=== PATIENT | female | born 1945 | race Caucasian/White ===

== ENCOUNTER 2017-03-11 08:15 | Emergency (ER) | payer OTHER ==
[2017-03-11 08:25] VITALS: BP 142/69; BMI 30.7
[2017-03-11] MEDS ORDERED: DUONEB 0.5 MG/3 MG NEB ONE (08:38)
[2017-03-11] MEDS ORDERED: DUONEB 0.5 MG/3 MG ONE ×2 (08:39→08:54)
[2017-03-11] MEDS ORDERED: NS 1000 ML 1,000 ML IV STA (08:49)
[2017-03-11] MEDS ORDERED: NS 1000 ML 1,000 ML ONE (08:52)
--- NOTE | 2017-03-11 08:55 | DR.GENAD ---
HPI - PCP Primary Care Physician: margarita - Complaint/Symptoms Chief Complaint Doctors Comments: Patient states that she has had headache, sore throat, chills and bodyaches for three days. She also admits to vomiting and diarrhea and low grade and low grade fever. Chief Complaint:: patient stated that since mondy she has been having abd pain with cramping and fever. 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 - Family History History of Family Medical Conditions: No - Social History Does patient currently use any type of tobacco product: No Have you used tobacco products in the last 12 months: No Type of Tobacco Use: None Does any household member use tobacco: No Alcohol Use: None Do you use any recreational Drugs:: No Lives With: Family Lives Where: Home - infectious screening In the last 2 months have you had wt loss of >10#?: NO Have you had fever, night sweats or hemotysis?: No Have you traveled outside the country in the last 6 months?: No Isolation: Standard ROS - Review of Systems Constitutional: Chills, Fever, Fatigue Eyes: No Symptoms Reported ENTM: No Symptoms Reported Respiratoy: No Symptoms Reported Cardiovascular: No Symptoms Reported Gastrointestinal/Abdominal: No Symptoms Reported Genitourinary: No Symptoms Reported Neurological: No Symptoms Reported Musculoskeletal: No Symptoms Reported Integumentary: No Symptoms Reported Hematologic/Lymphatic: No Symptoms Reported Endocrine: No Symptoms Reported Psychiatric: No Symptoms Reported All Other Systems: Reviewed and Negative PE - Vital Signs Vitals: Temperature 97.8 F Pulse Rate 84 Respiratory Rate 16 Blood Pressure 142/69 O2 Sat by Pulse Oximetry 93 - General Limitations: No Limitations General Appearance: Alert, In No Apparent Distress - Head Head Exam: Normal Inspection, Atraumatic - Eyes Eye exam: Normal Appearance, PERRL, EOMI - ENT ENT Exam: Normal Exam External Ear Exam: Normal External Inspection TM/Canal Exam: Bilateral Normal Nose Exam: Normal Nose Exam Mouth Exam: Normal Inspection Throat Exam: Normal Inspection - Neck Neck Exam: Normal Inspection - Chest Chest Inspection: Normal Inspection - Respiratory Respiratory Exam: Normal Lung Sounds Bilat Respiratory Exam: Bilateral Clear to Auscultation - Cardiovascular Cardiovascular Exam: Regular Rate, Normal Rhythm - Abdominal Exam Abdominal Exam: Normal Inspection Abdominal Tenderness: negative: RUQ, RLQ, LUQ, LLQ, Epigastrium, Suprapubic, Diffuse, Mild, Moderate, Severe, Other - Extremities Extremities Exam: Normal Inspection, Full ROM - Back Back Exam: Normal Inspection - Neurologic Neurological Exam: Alert, Oriented X3, CN II-XII Intact - Psychiatric Psychiatric Exam: Normal Affect - Skin Skin Exam: Warm, Dry, Intact Course - Reevaluation 1st: Improved ROR - Labs Reviewed Laboratory Results Reviewed?: Yes (low potassium) Result Diagrams: 03/11/17 09:08 03/11/17 09:08 Laboratory: WBC 10.4 X10^3/uL (3.6-10.0) H 03/11/17 09:08 RBC 4.80 X10^6/uL (3.5-5.4) 03/11/17 09:08 Hgb 13.5 g/dL (12.0-16.0) 03/11/17 09:08 Hct 39.8 % (36.0-47.0) 03/11/17 09:08 MCV 82.9 fL (80.0-100.0) 03/11/17 09:08 MCH 28.1 pg (27.0-34.0) 03/11/17 09:08 MCHC 33.9 g/dL (33.0-35.0) 03/11/17 09:08 RDW 14.2 % (11.6-16.5) 03/11/17 09:08 Plt Count 102 X10^3/uL (150.0-450.0) L 03/11/17 09:08 MPV 8.2 fL (7.4-11.0) 03/11/17 09:08 Neut % 86.4 % (42.0-75.0) H 03/11/17 09:08 Lymph % 6.7 % (21.0-51.0) L 03/11/17 09:08 [place] % 5.6 % (0.0-13.0) 03/11/17 09:08 Eos % 0.7 % (0.9-2.9) L 03/11/17 09:08 Baso % 0.6 % (0.2-1.0) 03/11/17 09:08 Neut # 9.0 x10^3/uL (2.2-4.8) H 03/11/17 09:08 Lymph # 0.7 X10^3/uL (1.3-2.9) L 03/11/17 09:08 [place] # 0.6 x10^3/uL (0.3-0.8) 03/11/17 09:08 Eos # 0.1 x10^3/uL (0.0-0.2) 03/11/17 09:08 Baso # 0.1 X10^3/uL (0.0-0.1) 03/11/17 09:08 Absolute Nucleated RBC 0.0 /100WBC 03/11/17 09:08 Sodium 143 mmol/L (136-145) 03/11/17 09:08 Corrected Sodium 145 mmol/L (136-145) 03/11/17 09:08 Potassium 2.6 mmol/L (3.5-5.1) L* 03/11/17 09:08 Chloride 106 mmol/L (98-107) 03/11/17 09:08 Carbon Dioxide 24.7 mmol/L (21-32) 03/11/17 09:08 BUN 17 mg/dL (7-18) 03/11/17 09:08 Creatinine 1.86 mg/dL (0.55-1.02) H 03/11/17 09:08 Est GFR (MDRD) Af Amer 34 (>60) L 03/11/17 09:08 Est GFR (MDRD) Non-Af 28 (>60) L 03/11/17 09:08 Glucose 181 mg/dL (65-99) H 03/11/17 09:08 Calcium 8.9 mg/dL (8.5-10.1) 03/11/17 09:08 Corrected Calcium 9.9 mg/dL (8.5-10.1) 03/11/17 09:08 Total Bilirubin 1.80 mg/dL (0.2-1.0) H 03/11/17 09:08 AST 50 Units/L (15-37) H 03/11/17 09:08 ALT 25 Units/L (12-78) 03/11/17 09:08 Alkaline Phosphatase 115 Units/L (46-116) 03/11/17 09:08 Total Protein 6.8 g/dL (6.4-8.2) 03/11/17 09:08 Albumin 2.8 g/dL (3.4-5.0) L 03/11/17 09:08 Globulin 4.0 g/dL (2.5-4.5) 03/11/17 09:08 Albumin/Globulin Ratio 0.7 Ratio (1.1-2.1) L 03/11/17 09:08 H. pylori IgG Antibody Positive (NEGATIVE) A 03/11/17 09:08 Streptococcus Screen Negative (NEGATIVE) 03/11/17 08:58 - XRAY XRAY Interpreted by: Radiologist (Chest: No cardiopulmonary disease) - Diagnosis Discharge Problem: Acute gastroenteritis - Discharge Plan Condition: Stable - Follow ups/Referrals Follow ups/Referrals: Hood Castillo [Primary Care Provider] - 3 days - Instructions
[2017-03-11 09:22] LABS: BASOPHILS # (AUTO) 0.1 X10^3/uL (0.0-0.1); BASOPHILS % (AUTO) 0.6 % (0.2-1.0); EOSINOPHILS # (AUTO) 0.1 x10^3/uL (0.0-0.2); EOSINOPHILS % (AUTO) 0.7 % (0.9-2.9); HEMATOCRIT 39.8 % (36.0-47.0); HEMOGLOBIN 13.5 g/dL (12.0-16.0); LYMPHOCYTES # (AUTO) 0.7 X10^3/uL (1.3-2.9); LYMPHOCYTES % (AUTO) 6.7 % (21.0-51.0); MEAN CORPUSCULAR HEMOGLOBIN 28.1 pg (27.0-34.0); MEAN CORPUSCULAR HGB CONC 33.9 g/dL (33.0-35.0); MEAN CORPUSCULAR VOLUME 82.9 fL (80.0-100.0); MEAN PLATELET VOLUME 8.2 fL (7.4-11.0); MONOCYTES # (AUTO) 0.6 x10^3/uL (0.3-0.8); MONOCYTES % (AUTO) 5.6 % (0.0-13.0); NEUTROPHILS % (AUTO) 86.4 % (42.0-75.0); PLATELET COUNT 102 X10^3/uL (150.0-450.0); RED CELL DISTRIBUTION WIDTH 14.2 % (11.6-16.5); WHITE BLOOD COUNT 10.4 X10^3/uL (3.6-10.0)
[2017-03-11 09:41] LABS: CALCIUM 8.9 mg/dL (8.5-10.1); CARBON DIOXIDE 24.7 mmol/L (21-32); CREATININE 1.86 mg/dL (0.55-1.02)
--- NOTE | 2017-03-11 09:43 | RAD ---
HISTORY: Fever, dehydration Study: Chest two views Comparison: None Findings: The trachea is midline. The cardiac silhouette is unremarkable. The lungs are clear without focal infiltrate or effusion. The bony thorax is unremarkable. IMPRESSION: 1. No acute cardiopulmonary disease. Reported By:
[2017-03-11 09:44] LABS: ALBUMIN 2.8 g/dL (3.4-5.0); COR CA(FOR HYPOALB) 9.9 mg/dL (8.5-10.1); TOTAL PROTEIN 6.8 g/dL (6.4-8.2)
[2017-03-11] MEDS ORDERED: K-LYTE EFFERVESCENT PO ONE ×2 (09:52→11:06)
== END 2017-03-11 11:59 | disposition home or self-care (01) ==
LOC: ER 08:35 → MERGE 08:35 → ER 11:59
DX: K52.89 Other specified noninfective gastroenteritis and colitis (principal)
CPT/HCPCS: 36415; 71020; 80053; 85025; 86677; 87070; 87502; 87503; 87880; 94640; 96365; 96367; 99283; A4222; J7620

== ENCOUNTER 2017-03-13 20:37 | Inpatient (IN) | payer OTHER ==
[2017-03-13 21:21] LABS: BILIRUBIN,URINE NEGATIVE (NEGATIVE); BLOOD/HEMOGLOBIN,URINE 2+ (NEGATIVE); GLUCOSE, URINE NEGATIVE (NEGATIVE); KETONES,URINE NEGATIVE (NEGATIVE); LEUKOCYTE ESTERASE ,URINE 1+ (NEGATIVE); NITRITES,URINE NEGATIVE (NEGATIVE); PROTEIN,URINE 1+ (NEGATIVE); UROBILINOGEN,URINE 1+ (NORMAL)
--- NOTE | 2017-03-13 21:24 | DR.GENAD ---
HPI - PCP Primary Care Physician: ALIYAH - Complaint/Symptoms Chief Complaint Doctors Comments: Patient presents with complaint of high fever today. She deneis vomitng, headache or diarrhea. She states that she is sick. 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, Other - Family History History of Family Medical Conditions: Yes Family Medical History: Diabetes Mellitus, Cancer, [place], Coronary Artery Disease, Heart Failure, Sudden Cardiac , Hypertension - Social History Does patient currently use any type of tobacco product: No Have you used tobacco products in the last 12 months: No Type of Tobacco Use: None Does any household member use tobacco: No Alcohol Use: None Do you use any recreational Drugs:: No Lives With: Spouse Lives Where: Home - infectious screening In the last 2 months have you had wt loss of >10#?: NO Have you had fever, night sweats or hemotysis?: No Have you traveled outside the country in the last 6 months?: No Isolation: Standard ROS - Review of Systems Constitutional: No Symptoms Reported Eyes: No Symptoms Reported ENTM: No Symptoms Reported Respiratoy: No Symptoms Reported Cardiovascular: No Symptoms Reported Gastrointestinal/Abdominal: No Symptoms Reported Genitourinary: No Symptoms Reported Neurological: No Symptoms Reported Musculoskeletal: No Symptoms Reported Integumentary: No Symptoms Reported Hematologic/Lymphatic: No Symptoms Reported Endocrine: No Symptoms Reported Psychiatric: No Symptoms Reported All Other Systems: Reviewed and Negative PE - Vital Signs Vitals: Temperature 99.2 F Pulse Rate 89 Respiratory Rate 18 Blood Pressure [Left Arm] 157/70 Blood Pressure [Right Arm] 136/77 Blood Pressure 220/80 O2 Sat by Pulse Oximetry 97 - General Limitations: No Limitations General Appearance: Alert, In No Apparent Distress - Head Head Exam: Normal Inspection, Atraumatic - Eyes Eye exam: Normal Appearance, PERRL - ENT ENT Exam: Normal Exam TM/Canal Exam: Bilateral Normal Nose Exam: Normal Nose Exam, Sinus Tenderness Mouth Exam: Normal Inspection, Drooling Throat Exam: Normal Inspection - Neck Neck Exam: Normal Inspection, Full ROM - Chest Chest Inspection: Normal Inspection - Respiratory Respiratory Exam: Normal Lung Sounds Bilat Respiratory Exam: Bilateral Clear to Auscultation - Cardiovascular Cardiovascular Exam: Regular Rate, Normal Rhythm - Abdominal Exam Abdominal Exam: Normal Inspection, Normal Bowel Sounds Abdominal Tenderness: negative: RUQ, RLQ, LUQ, LLQ, Epigastrium, Suprapubic, Diffuse, Mild, Moderate, Severe, Other - Extremities Extremities Exam: Normal Inspection, Full ROM - Back Back Exam: Normal Inspection, Full ROM - Neurologic Neurological Exam: Alert, Oriented X3, CN II-XII Intact - Psychiatric Psychiatric Exam: Normal Affect - Skin Skin Exam: Warm, Dry, Intact Course - Reevaluation 1st: Unchanged - Consultation Called: 10:00 (Admit for evaluation and treatment) ROR - Labs Reviewed Laboratory Results Reviewed?: Yes (hypokalemia; UA:Leukocyte +1, wbc 5-10, nit-) Result Diagrams: 03/13/17 21:30 03/13/17 21:30 Laboratory: WBC 6.8 X10^3/uL (3.6-10.0) 03/13/17 21:30 RBC 4.76 X10^6/uL (3.5-5.4) 03/13/17 21:30 Hgb 13.2 g/dL (12.0-16.0) 03/13/17 21:30 Hct 38.9 % (36.0-47.0) 03/13/17 21:30 MCV 81.7 fL (80.0-100.0) 03/13/17 21:30 MCH 27.7 pg (27.0-34.0) 03/13/17 21:30 MCHC 33.9 g/dL (33.0-35.0) 03/13/17 21:30 RDW 14.4 % (11.6-16.5) 03/13/17 21:30 Plt Count 115 X10^3/uL (150.0-450.0) L 03/13/17 21:30 Plt Count Comment Adequate (ADEQUATE) 03/13/17 21:30 MPV 8.2 fL (7.4-11.0) 03/13/17 21:30 Neut % 62.4 % (42.0-75.0) 03/13/17 21:30 Lymph % 17.8 % (21.0-51.0) L 03/13/17 21:30 [place] % 14.2 % (0.0-13.0) H 03/13/17 21:30 Eos % 4.6 % (0.9-2.9) H 03/13/17 21:30 Baso % 1.0 % (0.2-1.0) 03/13/17 21:30 Neut # 4.2 x10^3/uL (2.2-4.8) 03/13/17 21:30 Lymph # 1.2 X10^3/uL (1.3-2.9) L 03/13/17 21:30 [place] # 1.0 x10^3/uL (0.3-0.8) H 03/13/17 21:30 Eos # 0.3 x10^3/uL (0.0-0.2) H 03/13/17 21:30 Baso # 0.1 X10^3/uL (0.0-0.1) 03/13/17 21:30 Absolute Nucleated RBC 0.1 /100WBC 03/13/17 21:30 Total Counted 100 03/13/17 21:30 Neutrophils % (Manual) 63 % (39-76) 03/13/17 21:30 Band Neutrophils % 1 % (0-10) 03/13/17 21:30 Lymphocytes % (Manual) 20 % (13-43) 03/13/17 21:30 Monocytes % (Manual) 9 % (4-9) 03/13/17 21:30 Eosinophils % (Manual) 7 % (0-6) H 03/13/17 21:30 Plt Morphology Comment Normal (NORMAL) 03/13/17 21:30 RBC Morphology Normal (NORMAL) 03/13/17 21:30 Sodium 144 mmol/L (136-145) 03/13/17 21:30 Corrected Sodium 147 mmol/L (136-145) H 03/13/17 21:30 Potassium 2.7 mmol/L (3.5-5.1) L* 03/13/17 21:30 Chloride 107 mmol/L (98-107) 03/13/17 21:30 Carbon Dioxide 25.3 mmol/L (21-32) 03/13/17 21:30 BUN 19 mg/dL (7-18) H 03/13/17 21:30 Creatinine 1.64 mg/dL (0.55-1.02) H 03/13/17 21:30 Est GFR (MDRD) Af Amer 39 (>60) L 03/13/17 21:30 Est GFR (MDRD) Non-Af 33 (>60) L 03/13/17 21:30 Glucose 227 mg/dL (65-99) H 03/13/17 21:30 Calcium 8.7 mg/dL (8.5-10.1) 03/13/17 21: Corrected Calcium 10.0 mg/dL (8.5-10.1) 03/13/17 21:30 Total Bilirubin 1.20 mg/dL (0.2-1.0) H 03/13/17 21:30 AST 76 Units/L (15-37) H 03/13/17 21:30 ALT 37 Units/L (12-78) 03/13/17 21:30 Alkaline Phosphatase 179 Units/L (46-116) H 03/13/17 21:30 C-Reactive Protein 140.10 mg/L (0-3.0) H 03/13/17 21:30 Total Protein 6.6 g/dL (6.4-8.2) 03/13/17 21: Albumin 2.4 g/dL (3.4-5.0) L 03/13/17 21:30 Globulin 4.2 g/dL (2.5-4.5) 03/13/17 21:30 Albumin/Globulin Ratio 0.6 Ratio (1.1-2.1) L 03/13/17 21: Specimen Type Clean catch urine 03/13/17: Urine Color Yellow (YELLOW) 03/13/17: Urine Appearance Hazy (CLEAR) 03/13/17 21: Urine pH 6.0 (5.0 - 8.0) 03/13/17: Ur Specific [place] 1.005 (1.000-1.030) 03/13/17 21: Urine Protein 1+ (NEGATIVE) 03/13/17: Urine Glucose (UA) Negative (NEGATIVE) 03/13/17: Urine Ketones Negative (NEGATIVE) 03/13/17: Urine Occult Blood 2+ (NEGATIVE) 05/21/17 21:17 Urine Nitrite Negative (NEGATIVE) 03/13/17 21:17 Urine Bilirubin Negative (NEGATIVE) 03/13/17 21:17 Urine Urobilinogen 1+ (NORMAL) 03/13/17 21:17 Ur Leukocyte Esterase 1+ (NEGATIVE) 03/13/17 21:17 Urine RBC 3-5 /HPF (NEGATIVE) 03/13/17 21:17 Urine WBC 5-10 /HPF (NEGATIVE) 03/13/17 21:17 Ur Squamous Epith Cells Rare /HPF (NEGATIVE) 03/13/17 21:17 Urine Bacteria Trace /HPF (NEGATIVE) 03/13/17 21:17 Ur Culture Indicated? No/not indicated 03/13/17 21:17 - XRAY XRAY Interpreted by: Radiologist (Chest: Chronic lung parenchymal changes are seen bilaterally, non-specific. No acute abnormality) - Diagnosis Discharge Problem: Fever Qualifiers: Fever type: unspecified Qualified Code(s): R50.9 - Fever, unspecified UTI (urinary tract infection) Qualifiers: Urinary tract infection type: acute cystitis Hematuria presence: with hematuria Qualified Code(s): N30.01 - Acute cystitis with hematuria - Discharge Plan Condition: Stable - Follow ups/Referrals Follow ups/Referrals: CARMENCITA NAVARRETE [Primary Care Provider] - 3 days - Instructions
[2017-03-13 21:31] LABS: APPEARANCE,URINE HAZY (CLEAR); COLOR,URINE YELLOW (YELLOW); SQUAMOUS EPITHELIAL CELL,UR RARE /HPF (NEGATIVE)
[2017-03-13 21:32] LABS: BACTERIA,URINE TRACE /HPF (NEGATIVE)
[2017-03-13 21:54] LABS: BASOPHILS # (AUTO) 0.1 X10^3/uL (0.0-0.1); EOSINOPHILS # (AUTO) 0.3 x10^3/uL (0.0-0.2); HEMOGLOBIN 13.2 g/dL (12.0-16.0); LYMPHOCYTES # (AUTO) 1.2 X10^3/uL (1.3-2.9); LYMPHOCYTES % (AUTO) 17.8 % (21.0-51.0); NEUTROPHILS # (AUTO) 4.2 x10^3/uL (2.2-4.8)
--- NOTE | 2017-03-13 21:57 | RAD ---
EXAM: Chest X-ray INDICATION: Cough COMPARISION: Prior exam from March 11, 2017 TECHNIQUE: PA and Lat, 2 view FINDINGS: Chronic lung parenchymal changes are present bilaterally. No focal lung parenchymal abnormality jhoan ntified. The cardiac silhouette is . The mediastinum is normal. The regional skeleton is intact. IMPRESSION: Chronic lung parenchymal changes are seen bilaterally, non-specific. No acute abnormality. Reported By:
[2017-03-13 22:05] LABS: CALCIUM 8.7 mg/dL (8.5-10.1); CARBON DIOXIDE 25.3 mmol/L (21-32); CREATININE 1.64 mg/dL (0.55-1.02)
[2017-03-13 22:09] LABS: ALBUMIN 2.4 g/dL (3.4-5.0); C-REACTIVE PROTEIN 140.1 mg/L (0-3.0); TOTAL PROTEIN 6.6 g/dL (6.4-8.2)
[2017-03-13 22:11] LABS: EOSINOPHILS % (AUTO) 4.6 % (0.9-2.9); HEMATOCRIT 38.9 % (36.0-47.0); MEAN CORPUSCULAR HEMOGLOBIN 27.7 pg (27.0-34.0); MEAN CORPUSCULAR HGB CONC 33.9 g/dL (33.0-35.0); MEAN CORPUSCULAR VOLUME 81.7 fL (80.0-100.0); MEAN PLATELET VOLUME 8.2 fL (7.4-11.0); MONOCYTES % (AUTO) 14.2 % (0.0-13.0); NEUTROPHILS % (AUTO) 62.4 % (42.0-75.0); PLATELET COUNT 115 X10^3/uL (150.0-450.0); RED BLOOD COUNT 4.76 X10^6/uL (3.5-5.4); RED CELL DISTRIBUTION WIDTH 14.4 % (11.6-16.5); WHITE BLOOD COUNT 6.8 X10^3/uL (3.6-10.0)
[2017-03-13 22:19] LABS: BAND NEUTROPHILS % 1 % (0-10); PLATELET MORPHOLOGY COMMENT NORMAL (NORMAL)
[2017-03-13] MEDS ORDERED: K-LYTE EFFERVESCENT PO ONE (22:44)
[2017-03-13] MEDS ORDERED: ZOFRAN INJ 4 MG VIAL IVP PRN (22:55)
[2017-03-13] MEDS ORDERED: NS 1/2 1000 ML IV 1,000 ML with POTASSIUM CHLORIDE INJ 20 MEQ VIAL 20 MEQ IV SCH ×2 (23:00)
[2017-03-13] MEDS ORDERED: GENTAMICIN INJ 80 MG in NS 100 ML IV 100 ML IV ONE (23:25)
[2017-03-13] MEDS ORDERED: NS 1/2 1000 ML IV 0 ML IV ONE (23:27)
[2017-03-13] MEDS ORDERED: NS 100 ML IV 100 ML IV ONE (23:27)
[2017-03-13] MEDS ORDERED: GENTAMICIN INJ ONE (23:27)
[2017-03-14] MEDS ORDERED: LEVAQUIN PREMIX IV 750 MG 0 MG/0 ML BAG IV ONE (00:45)
[2017-03-14] MEDS: NS 1/2 + KCL 20 MEQ/L 1,000 ML IV SCH ×3 (00:48→14:27)
[2017-03-14] MEDS ORDERED: MILK OF MAGNESIA PO PRN (01:20)
[2017-03-14] MEDS ORDERED: COLACE CAP 100 MG PO PRN (01:20)
[2017-03-14 01:48] VITALS: BMI 31.4
[2017-03-14] MEDS ORDERED: AMPICILLIN VIAL 1 GM ONE (02:28)
[2017-03-14] MEDS ORDERED: NS 50 ML IV + SPIKE MINIBAG* 50 ML IV ONE (02:28)
[2017-03-14] MEDS: AMPICILLIN VIAL 1 GM 1 GM in NS 50 ML IV + SPIKE MINIBAG* 50 ML IV SCH ×2 (02:38→08:36)
[2017-03-14] MEDS: TYLENOL 500 MG TAB EXTRA STRENGTH PO PRN ×2 (02:49→15:42)
[2017-03-14 04:59] LABS: BASOPHILS # (AUTO) 0.1 X10^3/uL (0.0-0.1); BASOPHILS % (AUTO) 0.7 % (0.2-1.0); EOSINOPHILS # (AUTO) 0.3 x10^3/uL (0.0-0.2); EOSINOPHILS % (AUTO) 4.2 % (0.9-2.9); HEMATOCRIT 37.2 % (36.0-47.0); HEMOGLOBIN 12.7 g/dL (12.0-16.0); LYMPHOCYTES # (AUTO) 1.7 X10^3/uL (1.3-2.9); MEAN CORPUSCULAR HEMOGLOBIN 27.9 pg (27.0-34.0); MEAN PLATELET VOLUME 7.9 fL (7.4-11.0); MONOCYTES % (AUTO) 14.5 % (0.0-13.0); NEUTROPHILS # (AUTO) 3.8 x10^3/uL (2.2-4.8); NEUTROPHILS % (AUTO) 55.6 % (42.0-75.0); PLATELET COUNT 104 X10^3/uL (150.0-450.0); RED BLOOD COUNT 4.54 X10^6/uL (3.5-5.4); RED CELL DISTRIBUTION WIDTH 14.4 % (11.6-16.5); WHITE BLOOD COUNT 6.8 X10^3/uL (3.6-10.0)
[2017-03-14 05:12] LABS: ALBUMIN 2.3 g/dL (3.4-5.0); BAND NEUTROPHILS % 1 % (0-10); CALCIUM 8.7 mg/dL (8.5-10.1); CARBON DIOXIDE 28.1 mmol/L (21-32); COR CA(FOR HYPOALB) 10.1 mg/dL (8.5-10.1); CREATININE 1.5 mg/dL (0.55-1.02); MAGNESIUM 1.7 mg/dL (1.7-2.9); PLATELET MORPHOLOGY COMMENT NORMAL (NORMAL); TOTAL PROTEIN 6.3 g/dL (6.4-8.2)
[2017-03-14] MEDS ORDERED: K-LYTE EFFERVESCENT PO PRN (05:47)
[2017-03-14] MEDS ORDERED: K-RIDER 10 MEQ/NS 100 ML 10 MEQ/100 ML BAG IV PRN (05:47)
[2017-03-14] MEDS ORDERED: K-DUR TAB 20 MEQ PO PRN (05:47)
[2017-03-14] MEDS: POTASSIUM CHLORIDE LIQ 20 MEQ UDC PO PRN (06:16)
[2017-03-14] MEDS: ZOFRAN INJ 4 MG VIAL IVP PRN ×2 (09:00→14:27)
[2017-03-14] MEDS ORDERED: PHARMACY CONSULT - DOSE _____ XX SCH (10:00)
[2017-03-14] MEDS: LEVAQUIN PREMIX IV 750 MG 750 MG/150 ML BAG IV SCH (11:15)
[2017-03-14] MEDS ORDERED: ROBITUSSIN DM PO PRN (11:57)
--- NOTE | 2017-03-14 12:51 | DR.H&P ---
H&P - History & Physical for Day of: H&P Date: 03/13/17 - Chief Complaint Chief Complaint: FEVER, NAUSEA, VOMITING, DIARRHEA, DEHYDRATION - Allergies Allergies/Adverse Reactions: Allergies Allergy/AdvReac Type Severity Reaction Status Date / Time Codeine AdvReac Verified 09/15/15 03:41 Oxycodone [From Percocet] AdvReac Verified 03/11/17 08:20 Sulfa Antibiotics AdvReac Verified 09/15/15 03:41 - History of Present Illness History of Present Illness: THIS IS A 71 YEAR OLD FEMALE, WHO IS FOLLOWED BY SANDRA CLEMONS IN OUR [place] OFFICE. SHE PRESENTS TO THE EMERGENCY ROOM WITH COMPLAINTS OF FEVER, NAUSEA, VOMITING, AND DIARRHEA. SHE REPORTS THAT SHE WAS SEEN IN OUR EMERGENCY ROOM ON 03/09/17 FOR SAME COMPLAINTS. PATIENT STATES SHE FELT A KNOT IN HER EPIGASTRIC AREA AND STARTED WITH CRAMPING ON 03/07/17. SHE REPORTS ON 03/11/17, SHE HAD NAUSEA, VOMITING, AND DIARRHEA AND THAT HAS IMPROVED SOME. SHE CONTINUES WITH POOR FLUID INTAKE DUE TO NAUSEA. PATIENT REPORTS SHE WAS DIAGNOSED WITH H-PYLORI. PATIENT REPORTS SYMPTOMS OF FEVER OF 103F, CHILLS, AND COUGH. SHE REPORTS SHE HAS BEEN ROTATING MOTRIN AND TYLENOL AT HOME FOR FEVER AND HAS BEEN ON TAMIFLU AND ANTIBIOTICS. ON AUSCULTATION, LUNGS ARE DIMINISHED. LABS WERE OBTAINED ON ARRIVAL TO HOSPITAL. CBC WNL EXCPET: PLT COUNT 115. CMP WNL EXCEPT: POTASSIUM 2.7, BUN/CREAT 19/1.64, GFR 33, GLUCOSE 227, TOT BILIRUBIN 1.20, AST 76, ALK PHOS 179, ALBUMIN 2.4. CRP 140.10. URINALYSIS ABNORMALS: OCCULT BLOOD 2+, RBC 3-5, WBC 5-10. CHEST XRAY REPORTS CHRONIC LUNG PARENCHYMAL CHANGES; NO ACUTE ABNORMALITY. WE WILL ADMIT PATIENT, START IV FLUIDS, IV ANTIBIOTICS, AND POTASSIUM PROTOCOL. WE WILL MONITOR LABS AND FOLLOW UP IN AM WITH LABS. - Past Medical History Past Medical History: Anxiety, Arthritis, Dyslipidemia, GERD, Hypertension, Kidney Stones Additional Medical History: Cataracts, Pneumonia, Gall Bladder Disease, Constipation, Urinary Tract Infections, Skin Cancer - Past Surgical History Surgical History: Cholecystectomy Additional Surgical History: Cataract Surgery, Skin Cancer Removal, Stone Removal from Right Kidney - Family History Family Medical History: Cancer, [place], Hypertension Family History Comment: Alzheimers Disease - Social History Does patient currently use any type of tobacco product: No Have you used tobacco products in the last 12 months: No Type of Tobacco Use: None Does any household member use tobacco: No Alcohol Use: None Drug Use: None - Review of Systems Constitutional: Fever, Chills, Weakness, Malaise Eyes: No Symptoms Reported. denies: Pain, Vision Change, Conjunctivae Inflammation, Eyelid Inflammation, Redness ENT: No Symptoms Reported. denies: Ear Pain, Ear Discharge, Nose Pain, Nose Discharge, Nose Congestion, Mouth Pain, Mouth Swelling, Throat Pain, Throat Swelling Respiratory: Cough. denies: Shortness of Breath, Hemoptysis, SOB with Excertion , Pleuritic Pain, Sputum Cardiovascular: No Symptoms Reported. denies: Chest Pain, Palpitations, Orthopnea, Paroxysmal Noc. Dyspnea, Edema, Light Headedness Gastrointestinal: Nausea, Vomiting, Abdominal Pain, Diarrhea. denies: Constipation, Melena, Hematochezia Genitourinary: Dysuria, Frequency, Hematuria. denies: Incontinence Musculoskeletal: No Symptoms Reported. denies: Shoulder Pain, Arm Pain, Back Pain, Hand Pain, Leg Pain, Foot Pain, Neck Pain Skin: No Symptoms Reported. denies: Rash, Lesions, Jaundice, Bruising, Wound, Ecchymosis Neurological: No Symptoms Reported. denies: Weakness, Numbness, Incoordination , Change in Speech, Confusion, Seizures - Physical Exam Vital Signs: Temperature 97.8 F Pulse Rate [Left Radial] 68 Respiratory Rate 20 Blood Pressure [Left Arm] 140/67 O2 Sat by Pulse Oximetry 96 Oriented: Normal, Time, Person, Place Eyes: Normal. negative: Blurred Vision, Diplopia, Discharge, Pain, Redness, Photophobia Ear: Normal. negative: Swelling, Ecchymosis, Hemotypanum, Abrasion, Laceration Nose: Normal. negative: Injected, Discharge, Blood Throat: Dry. negative: Tonsillar Hypertrophy, Exudate Respiratory: Diminished Throughout Cardiovascular: Normal. negative: Murmur, Edema : Dysuria, Hematuria, Frequency. negative: Discharge, Bleeding, Auscultation: Bowel Sounds: Increased. negative: Bruit Palpation: Normal. negative: Spleen Enlarged, Liver Enlarged, Mass Pulsatile Tenderness: Normal. negative: Rebound, Guarding, Rigidity Skin: Decreased Turgur. negative: Diaphoresis, Wound, Bruising, Ecchymosis Musculoskeletal: Normal, Instability Psychiatric: Normal Mood Description: Calm, Appropriate Affect: Normal Speech Pattern: Clear, Appropriate - Assessment/Plan (1) Bronchopneumonia Status: Acute Plan: ADMIT PATIENT, START IV ANTIBIOTICS, IV FLUIDS, MONITOR LABS AND CHEST XRAY. (2) Acute gastroenteritis Status: Acute Plan: START IV FLUIDS, ANTI-EMETICS, MONITOR. (3) Fever Qualifiers: Fever type: unspecified Encounter type: E Qualified Code(s): R50.9 - Fever, unspecified Status: Acute Plan: ABOVE. (4) UTI (urinary tract infection) Qualifiers: Urinary tract infection type: acute cystitis Hematuria presence: with hematuria Indwelling urinary catheter type: I Encounter type: E Qualified Code(s): N30.01 - Acute cystitis with hematuria Status: Acute Plan: START IV ANTIBIOTICS, MONITOR. (5) Renal insufficiency Status: Acute Plan: ABOVE. (6) Hypoalbuminemia Status: Acute (7) Weakness Status: Acute (8) COPD (chronic obstructive pulmonary disease) Qualifiers: COPD type: COPD with acute lower respiratory infection Chronic bronchitis type: C Emphysema type: E Qualified Code(s): J44.0 - Chronic obstructive pulmonary disease with acute lower respiratory infection Status: Chronic (9) GERD (gastroesophageal reflux disease) Qualifiers: Esophagitis presence: esophagitis presence not specified Qualified Code(s) : K21.9 - Gastro-esophageal reflux disease without esophagitis Status: Chronic (10) Hyperlipidemia Qualifiers: Hyperlipidemia type: mixed hyperlipidemia Qualified Code(s): E78.2 - Mixed hyperlipidemia Status: Chronic (11) Hypertension Qualifiers: Hypertension type: essential hypertension Qualified Code(s): I10 - Essential (primary) hypertension Status: Chronic (12) Anxiety Status: Chronic
[2017-03-14] MEDS: ALBUMIN HUMAN 25%- 100ML 100 ML IV SCH (15:20)
--- NOTE | 2017-03-14 15:24 | PCM.PROG ---
Progress Note - Progress Note for Day of Date: 03/14/17 - Subjective Subjective: PATIENT RESTS IN BED AND CONTINUES WITH INTERMITTENT NAUSEA, POOR APPETITE, AND COUGH WITH CHEST CONGESTION. ON AUSCULTATION, LUNGS ARE NOTED WITH SCATTERED WHEEZING THROUGHOUT. PATIENT REPORTS COUGH IS NON-PRODUCTIVE, PERSISTENT. TEMPERATURE WAS 99.8F THROUGH THE NIGHT. PATIENT WAS STARTED ON POTASSIUM PROTOCOL AND POTASSIUM IMPROVED FROM 2.7 TO 3.1. CBC WNL EXCEPT: PLT COUNT 104. CMP WNL EXCEPT: POTASSIUM 3.1, BUN/CREAT 19/1.50, GFR 36, GLUCOSE 121, TOT BILIRUBIN 1.10, AST 70, ALK PHOS 166, TOT PROTEIN 6.3, ALBUMIN 2.3. WE WILL START ALBUMIN IV, LEVAQUIN IV, AND DUONEBS. WE WILL CONTINUE TO MONITOR AND FOLLOW UP IN AM WITH LABS AND CHEST XRAY. - Past Medical Family Social History Past Med/Fam/Surg Hx: No changes since H&P Allergies: Allergies Codeine Adverse Reaction (Verified 09/15/15 03:41) Oxycodone [From Percocet] Adverse Reaction (Verified 03/11/17 08:20) Sulfa Antibiotics Adverse Reaction (Verified 09/15/15 03:41) - Review of Systems ROS: No change since H&P - Vital Signs and I&O's Vital Signs: Temperature 97.8 F Pulse Rate [Left Radial] 68 Respiratory Rate 20 Blood Pressure [Left Arm] 140/67 O2 Sat by Pulse Oximetry 96 Intake and Output: Intake & Output 03/12/17 03/13/17 03/14/17 03/15/17 11:59 11:59 11:59 11:59 Intake Total 760 Output Total 200 Balance 560 - Physical Exam Oriented: Normal, Time, Person, Place Eyes: Normal. negative: Blurred Vision, Diplopia, Discharge, Pain, Redness, Photophobia Ear: Normal. negative: Swelling, Ecchymosis, Hemotypanum, Abrasion, Laceration Nose: Normal. negative: Injected, Discharge, Blood Throat: Dry. negative: Tonsillar Hypertrophy, Exudate Respiratory: Generalized, Wheezes Cardiovascular: Normal. negative: Murmur, Edema : Dysuria, Hematuria, Frequency. negative: Discharge, Bleeding, Auscultation: Bowel Sounds: Increased. negative: Bruit Palpation: Normal. negative: Spleen Enlarged, Liver Enlarged, Mass Pulsatile Tenderness: Normal. negative: Rebound, Guarding, Rigidity Skin: Decreased Turgur. negative: Diaphoresis, Wound, Bruising, Ecchymosis Musculoskeletal: Normal, Instability Psychiatric: Normal Mood Description: Calm, Appropriate Affect: Normal Speech Pattern: Clear, Appropriate - Laboratory and Diagnostics Result Diagrams: 03/14/17 04:30 03/14/17 08:10 Labs: Laboratory WBC 6.8 X10^3/uL (3.6-10.0) 03/14/17 04:30 RBC 4.54 X10^6/uL (3.5-5.4) 03/14/17 04:30 Hgb 12.7 g/dL (12.0-16.0) 03/14/17 04:30 Hct 37.2 % (36.0-47.0) 03/14/17 04:30 MCV 82.0 fL (80.0-100.0) 03/14/17 04:30 MCH 27.9 pg (27.0-34.0) 03/14/17 04:30 MCHC 34.0 g/dL (33.0-35.0) 03/14/17 04:30 RDW 14.4 % (11.6-16.5) 03/14/17 04:30 Plt Count 104 X10^3/uL (150.0-450.0) L 03/14/17 04:30 Plt Count Comment Adequate (ADEQUATE) 03/14/17 04:30 MPV 7.9 fL (7.4-11.0) 03/14/17 04:30 Neut % 55.6 % (42.0-75.0) 03/14/17 04:30 Lymph % 25.0 % (21.0-51.0) 03/14/17 04:30 [place] % 14.5 % (0.0-13.0) H 03/14/17 04:30 Eos % 4.2 % (0.9-2.9) H 03/14/17 04:30 Baso % 0.7 % (0.2-1.0) 03/14/17 04:30 Neut # 3.8 x10^3/uL (2.2-4.8) 03/14/17 04:30 Lymph # 1.7 X10^3/uL (1.3-2.9) 03/14/17 04:30 [place] # 1.0 x10^3/uL (0.3-0.8) H 03/14/17 04:30 Eos # 0.3 x10^3/uL (0.0-0.2) H 03/14/17 04:30 Baso # 0.1 X10^3/uL (0.0-0.1) 03/14/17 04:30 Absolute Nucleated RBC 0.1 /100WBC 03/14/17 04:30 Total Counted 100 03/14/17 04:30 Neutrophils % (Manual) 60 % (39-76) 03/14/17 04:30 Band Neutrophils % 1 % (0-10) 03/14/17 04:30 Lymphocytes % (Manual) 26 % (13-43) 03/14/17 04:30 Monocytes % (Manual) 10 % (4-9) H 03/14/17 04:30 Eosinophils % (Manual) 3 % (0-6) 03/14/17 04:30 Plt Morphology Comment Normal (NORMAL) 03/14/17 04:30 RBC Morphology Normal (NORMAL) 03/14/17 04:30 Sodium 144 mmol/L (136-145) 03/14/17 04:30 Corrected Sodium 145 mmol/L (136-145) 03/14/17 04:30 Potassium 3.9 mmol/L (3.5-5.1) 03/14/17 08:10 Chloride 107 mmol/L (98-107) 03/14/17 04:30 Carbon Dioxide 28.1 mmol/L (21-32) 03/14/17 04:30 BUN 19 mg/dL (7-18) H 03/14/17 04:30 Creatinine 1.50 mg/dL (0.55-1.02) H 03/14/17 04:30 Est GFR (MDRD) Af Amer 44 (>60) L 03/14/17 04:30 Est GFR (MDRD) Non-Af 36 (>60) L 03/14/17 04:30 Glucose 121 mg/dL (65-99) H 03/14/17 04:30 Calcium 8.7 mg/dL (8.5-10.1) 03/14/17 04:30 Corrected Calcium 10.1 mg/dL (8.5-10.1) 03/14/17 04:30 Magnesium 1.7 mg/dL (1.7-2.9) 03/14/17 04:30 Total Bilirubin 1.10 mg/dL (0.2-1.0) H 03/14/17 04:30 AST 70 Units/L (15-37) H 03/14/17 04:30 ALT 32 Units/L (12-78) 03/14/17 04:30 Alkaline Phosphatase 166 Units/L (46-116) H 03/14/17 04:30 C-Reactive Protein 140.10 mg/L (0-3.0) H 03/13/17 21:30 Total Protein 6.3 g/dL (6.4-8.2) L 03/14/17 04:30 Albumin 2.3 g/dL (3.4-5.0) L 03/14/17 04:30 Globulin 4.0 g/dL (2.5-4.5) 03/14/17 04:30 Albumin/Globulin Ratio 0.6 Ratio (1.1-2.1) L 03/14/17 04:30 Specimen Type Clean catch urine 03/13/17 21:17 Urine Color Yellow (YELLOW) 03/13/17 21:17 Urine Appearance Hazy (CLEAR) 03/13/17 21:17 Urine pH 6.0 (5.0 - 8.0) 03/13/17 21:17 Ur Specific [place] 1.005 (1.000-1.030) 03/13/17 21:17 Urine Protein 1+ (NEGATIVE) 03/13/17 21: Urine Glucose (UA) Negative (NEGATIVE) 03/13/17 21: Urine Ketones Negative (NEGATIVE) 03/13/17 21:17 Urine Occult Blood 2+ (NEGATIVE) 03/13/17 21: Urine Nitrite Negative (NEGATIVE) 03/13/17 21: Urine Bilirubin Negative (NEGATIVE) 03/13/17 21: Urine Urobilinogen 1+ (NORMAL) 03/13/17 21:17 Ur Leukocyte Esterase 1+ (NEGATIVE) 03/13/17 21:17 Urine RBC 3-5 /HPF (NEGATIVE) 03/13/17 21:17 Urine WBC 5-10 /HPF (NEGATIVE) 03/13/17 21:17 Ur Squamous Epith Cells Rare /HPF (NEGATIVE) 03/13/17 21:17 Urine Bacteria Trace /HPF (NEGATIVE) 03/13/17 21:17 Ur Culture Indicated? No/not indicated 03/13/17 21:17 - Plan (1) Bronchopneumonia Status: Acute Plan: START LEVAQUIN, DUONEBS, ROBITUSSIN, DISCONTINUE AMPICILLIN, CONTINUE IV FLUIDS, MONITOR LABS AND CHEST XRAY. (2) Hypokalemia Status: Acute Plan: CONTINUE POTASSIUM PROTOCOL, MONITOR LABS. (3) Acute gastroenteritis Status: Acute Plan: CONTINUE IV FLUIDS, ANTI-EMETICS, MONITOR. (4) Fever Status: Acute Qualifiers: Fever type: unspecified Encounter type: E Qualified Code(s): R50.9 - Fever, unspecified Plan: ABOVE. (5) UTI (urinary tract infection) Status: Acute Qualifiers: Urinary tract infection type: acute cystitis Hematuria presence: with hematuria Indwelling urinary catheter type: I Encounter type: E Qualified Code(s): N30.01 - Acute cystitis with hematuria Plan: CONTINUE IV ANTIBIOTICS, MONITOR. (6) Renal insufficiency Status: Acute Plan: ABOVE. (7) Hypoalbuminemia Status: Acute Plan: START ALBUMIN IV, MONITOR LABS. (8) Weakness Status: Acute Plan: CONTINUE IV FLUIDS, MONITOR. (9) COPD (chronic obstructive pulmonary disease) Status: Chronic Qualifiers: COPD type: COPD with acute lower respiratory infection Chronic bronchitis type: C Emphysema type: E Qualified Code(s): J44.0 - Chronic obstructive pulmonary disease with acute lower respiratory infection (10) GERD (gastroesophageal reflux disease) Status: Chronic Qualifiers: Esophagitis presence: esophagitis presence not specified Qualified Code(s) : K21.9 - Gastro-esophageal reflux disease without esophagitis (11) Hyperlipidemia Status: Chronic Qualifiers: Hyperlipidemia type: mixed hyperlipidemia Qualified Code(s): E78.2 - Mixed hyperlipidemia (12) Hypertension Status: Chronic Qualifiers: Hypertension type: essential hypertension Qualified Code(s): I10 - Essential (primary) hypertension (13) Anxiety Status: Chronic
[2017-03-14] MEDS: DUONEB 0.5 MG/3 MG NEB SCH ×2 (16:41→20:57)
[2017-03-14] MEDS: ROBITUSSIN DM PO SCH ×2 (17:27→21:44)
[2017-03-14] MEDS: ANTIVERT TAB 25 MG PO SCH (21:44)
[2017-03-14] MEDS: ZOCOR TAB 20 MG PO SCH (21:44)
[2017-03-14] MEDS: HYZAAR 50/12.5 MG PO SCH (22:16)
[2017-03-14] MEDS: RESTORIL CAP 15 MG PO PRN (22:17)
[2017-03-15] MEDS: NS 1/2 + KCL 20 MEQ/L 1,000 ML IV SCH ×3 (01:39→15:46)
[2017-03-15 05:22] LABS: ALBUMIN 2.8 g/dL (3.4-5.0); CARBON DIOXIDE 25.9 mmol/L (21-32); CREATININE 1.51 mg/dL (0.55-1.02); TOTAL PROTEIN 6.9 g/dL (6.4-8.2)
[2017-03-15 05:27] LABS: BASOPHILS # (AUTO) 0.1 X10^3/uL (0.0-0.1); BASOPHILS % (AUTO) 0.8 % (0.2-1.0); EOSINOPHILS # (AUTO) 0.2 x10^3/uL (0.0-0.2); EOSINOPHILS % (AUTO) 2.5 % (0.9-2.9); HEMATOCRIT 36.9 % (36.0-47.0); HEMOGLOBIN 12.4 g/dL (12.0-16.0); LYMPHOCYTES # (AUTO) 1.7 X10^3/uL (1.3-2.9); LYMPHOCYTES % (AUTO) 21.6 % (21.0-51.0); MEAN CORPUSCULAR HEMOGLOBIN 27.6 pg (27.0-34.0); MEAN CORPUSCULAR HGB CONC 33.5 g/dL (33.0-35.0); MEAN CORPUSCULAR VOLUME 82.4 fL (80.0-100.0); MEAN PLATELET VOLUME 7.7 fL (7.4-11.0); NEUTROPHILS # (AUTO) 4.9 x10^3/uL (2.2-4.8); NEUTROPHILS % (AUTO) 62.1 % (42.0-75.0); PLATELET COUNT 131 X10^3/uL (150.0-450.0); RED BLOOD COUNT 4.48 X10^6/uL (3.5-5.4); WHITE BLOOD COUNT 7.9 X10^3/uL (3.6-10.0)
[2017-03-15 06:09] LABS: BAND NEUTROPHILS % 5 % (0-10); PLATELET MORPHOLOGY COMMENT NORMAL (NORMAL)
[2017-03-15] MEDS: TYLENOL 500 MG TAB EXTRA STRENGTH PO PRN (06:11)
--- NOTE | 2017-03-15 06:23 | RAD ---
HISTORY: Cough congestion Study: Chest one view Comparison: March 13, 2017 Findings: The trachea is midline. The cardiac silhouette is enlarged. No congestive heart failure is noted.. The lungs are clear without focal infiltrate or effusion. The bony thorax is unremarkable. IMPRESSION: 1. Cardiomegaly without congestive heart failure 2. Lungs clear Reported By:
[2017-03-15] MEDS: DUONEB 0.5 MG/3 MG NEB SCH ×4 (09:16→20:43)
[2017-03-15] MEDS: HYZAAR 50/12.5 MG PO SCH (09:46)
[2017-03-15] MEDS: ROBITUSSIN DM PO SCH ×4 (09:46→20:58)
[2017-03-15] MEDS: ALBUMIN HUMAN 25%- 100ML 100 ML IV SCH (09:47)
--- NOTE | 2017-03-15 11:41 | PCM.PROG ---
Progress Note - Progress Note for Day of Date: 03/15/17 - Subjective Subjective: PATIENT RESTS IN BED AND CONTINUES WITH COUGH AND CHEST CONGESTION. PATIENT HAS HAD A LOW-GRADE FEVER THROUGH THE NIGHT. ON AUSCULTATION, LUNGS CONTINUE WITH SCATTERED WHEEZING THROUGHOUT. COUGH IS NON-PRODUCTIVE, PERSISTENT. CBC WNL EXCEPT: PLT COUNT 131. CMP WNL EXCEPT: CREAT 1.51, GFR 36 , GLUCOSE 143, TOT BILIRUBIN 1.10, AST 52, ALK PHOS 167, ALBUMIN 2.8. WE WILL CONTINUE ALBUMIN IV, LEVAQUIN IV, AND DUONEBS. WE WILL CONTINUE TO MONITOR AND FOLLOW UP IN AM WITH LABS AND CHEST XRAY. - Past Medical Family Social History Past Med/Fam/Surg Hx: No changes since H&P Allergies: Allergies Codeine Adverse Reaction (Verified 09/15/15 03:41) Oxycodone [From Percocet] Adverse Reaction (Verified 03/11/17 08:20) Sulfa Antibiotics Adverse Reaction (Verified 09/15/15 03:41) - Review of Systems ROS: No change since H&P - Vital Signs and I&O's Vital Signs: Temperature 98.5 F Pulse Rate [Left Radial] 63 Pulse Rate 65 Respiratory Rate 18 Blood Pressure [Left Arm] 147/65 O2 Sat by Pulse Oximetry 93 Intake and Output: Intake & Output 03/12/17 03/13/17 03/14/17 03/15/17 11:59 11:59 11:59 11:59 Intake Total 760 2448 Output Total 200 Balance 560 2448 - Physical Exam Oriented: Normal, Time, Person, Place Eyes: Normal. negative: Blurred Vision, Diplopia, Discharge, Pain, Redness, Photophobia Ear: Normal. negative: Swelling, Ecchymosis, Hemotypanum, Abrasion, Laceration Nose: Normal. negative: Injected, Discharge, Blood Throat: Dry. negative: Tonsillar Hypertrophy, Exudate Respiratory: Generalized, Wheezes Cardiovascular: Normal. negative: Murmur, Edema : Dysuria, Hematuria, Frequency. negative: Discharge, Bleeding, Auscultation: Bowel Sounds: Increased. negative: Bruit Palpation: Normal Tenderness: Normal. negative: Rebound, Guarding, Rigidity Skin: Decreased Turgur. negative: Diaphoresis, Wound, Bruising, Ecchymosis Musculoskeletal: Normal, Instability Psychiatric: Normal Mood Description: Calm, Appropriate Affect: Normal Speech Pattern: Clear, Appropriate - Laboratory and Diagnostics Result Diagrams: 03/15/17 04:35 03/15/17 04:35 Labs: Laboratory WBC 7.9 X10^3/uL (3.6-10.0) 03/15/17 04:35 RBC 4.48 X10^6/uL (3.5-5.4) 03/15/17 04:35 Hgb 12.4 g/dL (12.0-16.0) 03/15/17 04:35 Hct 36.9 % (36.0-47.0) 03/15/17 04:35 MCV 82.4 fL (80.0-100.0) 03/15/17 04:35 MCH 27.6 pg (27.0-34.0) 03/15/17 04:35 MCHC 33.5 g/dL (33.0-35.0) 03/15/17 04:35 RDW 14.0 % (11.6-16.5) 03/15/17 04:35 Plt Count 131 X10^3/uL (150.0-450.0) L 03/15/17 04:35 Plt Count Comment Decreased (ADEQUATE) A 03/15/17 04:35 MPV 7.7 fL (7.4-11.0) 03/15/17 04:35 Neut % 62.1 % (42.0-75.0) 03/15/17 04:35 Lymph % 21.6 % (21.0-51.0) 03/15/17 04:35 [place] % 13.0 % (0.0-13.0) 03/15/17 04:35 Eos % 2.5 % (0.9-2.9) 03/15/17 04:35 Baso % 0.8 % (0.2-1.0) 03/15/17 04:35 Neut # 4.9 x10^3/uL (2.2-4.8) H 03/15/17 04:35 Lymph # 1.7 X10^3/uL (1.3-2.9) 03/15/17 04:35 [place] # 1.0 x10^3/uL (0.3-0.8) H 03/15/17 04:35 Eos # 0.2 x10^3/uL (0.0-0.2) 03/15/17 04:35 Baso # 0.1 X10^3/uL (0.0-0.1) 03/15/17 04:35 Absolute Nucleated RBC 0.1 /100WBC 03/15/17 04:35 Total Counted 100 03/15/17 04:35 Neutrophils % (Manual) 57 % (39-76) 03/15/17 04:35 Band Neutrophils % 5 % (0-10) 03/15/17 04:35 Lymphocytes % (Manual) 29 % (13-43) 03/15/17 04:35 Monocytes % (Manual) 7 % (4-9) 03/15/17 04:35 Eosinophils % (Manual) 2 % (0-6) 03/15/17 04:35 Plt Morphology Comment Normal (NORMAL) 03/15/17 04:35 RBC Morphology Normal (NORMAL) 03/15/17 04:35 Sodium 141 mmol/L (136-145) 03/15/17 04:35 Corrected Sodium 142 mmol/L (136-145) 03/15/17 04:35 Potassium 3.5 mmol/L (3.5-5.1) 03/15/17 04:35 Chloride 105 mmol/L (98-107) 03/15/17 04:35 Carbon Dioxide 25.9 mmol/L (21-32) 03/15/17 04:35 BUN 15 mg/dL (7-18) 03/15/17 04:35 Creatinine 1.51 mg/dL (0.55-1.02) H 03/15/17 04:35 Est GFR (MDRD) Af Amer 43 (>60) L 03/15/17 04:35 Est GFR (MDRD) Non-Af 36 (>60) L 03/15/17 04:35 Glucose 143 mg/dL (65-99) H 03/15/17 04:35 Calcium 9.0 mg/dL (8.5-10.1) 03/15/17 04:35 Corrected Calcium 10.0 mg/dL (8.5-10.1) 03/15/17 04:35 Magnesium 1.7 mg/dL (1.7-2.9) 03/14/17 04:30 Total Bilirubin 1.10 mg/dL (0.2-1.0) H 03/15/17 04:35 AST 52 Units/L (15-37) H 03/15/17 04:35 ALT 31 Units/L (12-78) 03/15/17 04:35 Alkaline Phosphatase 167 Units/L (46-116) H 03/15/17 04:35 C-Reactive Protein 140.10 mg/L (0-3.0) H 03/13/17 21:30 Total Protein 6.9 g/dL (6.4-8.2) 03/15/17 04:35 Albumin 2.8 g/dL (3.4-5.0) L 03/15/17 04:35 Globulin 4.1 g/dL (2.5-4.5) 03/15/17 04:35 Albumin/Globulin Ratio 0.7 Ratio (1.1-2.1) L 03/15/17 04:35 Specimen Type Clean catch urine 03/13/17 21:17 Urine Color Yellow (YELLOW) 03/13/17 21: Urine Appearance Hazy (CLEAR) 03/13/17 21:17 Urine pH 6.0 (5.0 - 8.0) 03/13/17 21:17 Ur Specific [place] 1.005 (1.000-1.030) 03/13/17 21:17 Urine Protein 1+ (NEGATIVE) 03/13/17 21: Urine Glucose (UA) Negative (NEGATIVE) 03/13/17 21:17 Urine Ketones Negative (NEGATIVE) 03/13/17 21: Urine Occult Blood 2+ (NEGATIVE) 03/13/17 21: Urine Nitrite Negative (NEGATIVE) 03/13/17 21: Urine Bilirubin Negative (NEGATIVE) 03/13/17 21:17 Urine Urobilinogen 1+ (NORMAL) 03/13/17 21:17 Ur Leukocyte Esterase 1+ (NEGATIVE) 03/13/17 21: Urine RBC 3-5 /HPF (NEGATIVE) 03/13/17 21: Urine WBC 5-10 /HPF (NEGATIVE) 03/13/17 21:17 Ur Squamous Epith Cells Rare /HPF (NEGATIVE) 03/13/17 21:17 Urine Bacteria Trace /HPF (NEGATIVE) 03/13/17 21: Ur Culture Indicated? No/not indicated 03/13/17 21:17 - Plan (1) Bronchopneumonia Status: Acute Plan: CONTINUE LEVAQUIN, DUONEBS, ROBITUSSIN, IV FLUIDS, MONITOR LABS AND CHEST XRAY. (2) Hypokalemia Status: Acute Plan: CONTINUE POTASSIUM PROTOCOL, MONITOR LABS. (3) Acute gastroenteritis Status: Acute Plan: CONTINUE IV FLUIDS, ANTI-EMETICS, MONITOR. (4) Fever Status: Acute Qualifiers: Fever type: unspecified Encounter type: E Qualified Code(s): R50.9 - Fever, unspecified Plan: ABOVE. (5) UTI (urinary tract infection) Status: Acute Qualifiers: Urinary tract infection type: acute cystitis Hematuria presence: with hematuria Indwelling urinary catheter type: I Encounter type: E Qualified Code(s): N30.01 - Acute cystitis with hematuria Plan: CONTINUE IV ANTIBIOTICS, MONITOR. (6) Renal insufficiency Status: Acute Plan: ABOVE. (7) Hypoalbuminemia Status: Acute Plan: CONTINUE ALBUMIN IV, MONITOR LABS. (8) Weakness Status: Acute Plan: CONTINUE IV FLUIDS, MONITOR. (9) COPD (chronic obstructive pulmonary disease) Status: Chronic Qualifiers: COPD type: COPD with acute lower respiratory infection Chronic bronchitis type: C Emphysema type: E Qualified Code(s): J44.0 - Chronic obstructive pulmonary disease with acute lower respiratory infection (10) GERD (gastroesophageal reflux disease) Status: Chronic Qualifiers: Esophagitis presence: esophagitis presence not specified Qualified Code(s) : K21.9 - Gastro-esophageal reflux disease without esophagitis (11) Hyperlipidemia Status: Chronic Qualifiers: Hyperlipidemia type: mixed hyperlipidemia Qualified Code(s): E78.2 - Mixed hyperlipidemia (12) Hypertension Status: Chronic Qualifiers: Hypertension type: essential hypertension Qualified Code(s): I10 - Essential (primary) hypertension (13) Anxiety Status: Chronic
[2017-03-15] MEDS: ANTIVERT TAB 25 MG PO SCH (20:57)
[2017-03-15] MEDS: RESTORIL CAP 15 MG PO PRN (20:57)
[2017-03-15] MEDS: ZOCOR TAB 20 MG PO SCH (20:57)
[2017-03-16] MEDS: TYLENOL 500 MG TAB EXTRA STRENGTH PO PRN (00:41)
[2017-03-16] MEDS: NS 1/2 + KCL 20 MEQ/L 1,000 ML IV SCH ×3 (05:25→17:26)
[2017-03-16 05:31] LABS: BASOPHILS # (AUTO) 0.1 X10^3/uL (0.0-0.1); BASOPHILS % (AUTO) 0.6 % (0.2-1.0); EOSINOPHILS # (AUTO) 0.3 x10^3/uL (0.0-0.2); EOSINOPHILS % (AUTO) 3.4 % (0.9-2.9); HEMATOCRIT 36.9 % (36.0-47.0); HEMOGLOBIN 12.3 g/dL (12.0-16.0); LYMPHOCYTES % (AUTO) 22.5 % (21.0-51.0); MEAN CORPUSCULAR HEMOGLOBIN 27.7 pg (27.0-34.0); MEAN CORPUSCULAR HGB CONC 33.3 g/dL (33.0-35.0); MEAN CORPUSCULAR VOLUME 83.2 fL (80.0-100.0); MEAN PLATELET VOLUME 7.4 fL (7.4-11.0); MONOCYTES % (AUTO) 11.6 % (0.0-13.0); NEUTROPHILS # (AUTO) 5.4 x10^3/uL (2.2-4.8); NEUTROPHILS % (AUTO) 61.9 % (42.0-75.0); PLATELET COUNT 161 X10^3/uL (150.0-450.0); RED BLOOD COUNT 4.43 X10^6/uL (3.5-5.4); RED CELL DISTRIBUTION WIDTH 14.5 % (11.6-16.5); WHITE BLOOD COUNT 8.7 X10^3/uL (3.6-10.0)
[2017-03-16 05:41] LABS: ALBUMIN 3.2 g/dL (3.4-5.0); CALCIUM 9.2 mg/dL (8.5-10.1); CARBON DIOXIDE 27.1 mmol/L (21-32); COR CA(FOR HYPOALB) 9.8 mg/dL (8.5-10.1); CREATININE 1.43 mg/dL (0.55-1.02); TOTAL PROTEIN 7.1 g/dL (6.4-8.2)
[2017-03-16 05:44] LABS: BAND NEUTROPHILS % 6 % (0-10)
[2017-03-16 05:45] LABS: PLATELET MORPHOLOGY COMMENT NORMAL (NORMAL)
[2017-03-16] MEDS: POTASSIUM CHLORIDE LIQ 20 MEQ UDC PO PRN (05:49)
--- NOTE | 2017-03-16 06:09 | RAD ---
HISTORY: Fever, UTI Study: Chest one view Comparison: March 15, 2017 Findings: The heart is mildly enlarged. No congestive heart failure is noted. No acute alveolar infiltrates or pleural effusions are identified. The bony thorax is unremarkable. IMPRESSION: Cardiomegaly without congestive heart failure Lungs clear Reported By:
[2017-03-16] MEDS: ALBUMIN HUMAN 25%- 100ML 100 ML IV SCH (09:03)
[2017-03-16] MEDS: ROBITUSSIN DM PO SCH ×5 (09:03→21:00)
[2017-03-16] MEDS: HYZAAR 50/12.5 MG PO SCH (09:03)
[2017-03-16] MEDS: DUONEB 0.5 MG/3 MG NEB SCH ×4 (09:28→22:24)
[2017-03-16] MEDS: TORADOL 30 MG VIAL IVP SCH ×3 (09:52→21:01)
[2017-03-16] MEDS: LEVAQUIN PREMIX IV 750 MG 750 MG/150 ML BAG IV SCH (10:09)
--- NOTE | 2017-03-16 16:07 | PCM.PROG ---
Progress Note - Progress Note for Day of Date: 03/16/17 - Subjective Subjective: PATIENT CONTINUES WITH COUGH AND CHEST CONGESTION. PATIENT IS AFEBRILE. PATIENT REPORTS GENERALIZED MUSCLE PAIN AND SORENESS. ON AUSCULTATION, LUNGS CONTINUE WITH SCATTERED WHEEZING THROUGHOUT. COUGH CONTINUES TO BE NON-PRODUCTIVE, PERSISTENT. CBC WNL. CMP WNL EXCEPT: POTASSIUM 3.0, CREAT 1.43, GFR 38, GLUCOSE 133, ALK PHOS 142, ALBUMIN 3.2. WE WILL START TORADOL QID FOR TODAY, CONTINUE ALBUMIN IV, LEVAQUIN IV, AND DUONEBS. WE WILL CONTINUE TO MONITOR AND FOLLOW UP IN AM WITH LABS AND CHEST XRAY. - Past Medical Family Social History Past Med/Fam/Surg Hx: No changes since H&P Allergies: Allergies Codeine Adverse Reaction (Verified 09/15/15 03:41) Oxycodone [From Percocet] Adverse Reaction (Verified 03/11/17 08:20) Sulfa Antibiotics Adverse Reaction (Verified 09/15/15 03:41) - Review of Systems ROS: No change since H&P - Vital Signs and I&O's Vital Signs: Temperature 97.6 F Pulse Rate [Left Radial] 64 Pulse Rate 73 Respiratory Rate 20 Blood Pressure [Left Arm] 122/58 Blood Pressure [Right Arm] 107/49 O2 Sat by Pulse Oximetry 94 Intake and Output: Intake & Output 03/14/17 03/15/17 03/16/17 03/17/17 11:59 11:59 11:59 11:59 Intake Total 760 2448 1974 154 Output Total 200 Balance 560 2448 1974 154 - Physical Exam Oriented: Normal, Time, Person, Place Eyes: Normal. negative: Blurred Vision, Diplopia, Discharge, Pain, Redness, Photophobia Ear: Normal. negative: Swelling, Ecchymosis, Hemotypanum, Abrasion, Laceration Nose: Normal. negative: Injected, Discharge, Blood Throat: Dry. negative: Tonsillar Hypertrophy, Exudate Respiratory: Generalized, Wheezes Cardiovascular: Normal. negative: Murmur, Edema : Dysuria, Hematuria, Frequency. negative: Discharge, Bleeding, Auscultation: Bowel Sounds: Increased. negative: Bruit Palpation: Normal Tenderness: Normal. negative: Rebound, Guarding, Rigidity Skin: Decreased Turgur. negative: Diaphoresis, Wound, Bruising, Ecchymosis Musculoskeletal: Normal, Instability Psychiatric: Normal Mood Description: Calm, Appropriate Affect: Normal Speech Pattern: Clear, Appropriate - Laboratory and Diagnostics Result Diagrams: 03/16/17 04:45 03/16/17 08:03 Labs: Laboratory WBC 8.7 X10^3/uL (3.6-10.0) 03/16/17 04:45 RBC 4.43 X10^6/uL (3.5-5.4) 03/16/17 04:45 Hgb 12.3 g/dL (12.0-16.0) 03/16/17 04:45 Hct 36.9 % (36.0-47.0) 03/16/17 04:45 MCV 83.2 fL (80.0-100.0) 03/16/17 04:45 MCH 27.7 pg (27.0-34.0) 03/16/17 04:45 MCHC 33.3 g/dL (33.0-35.0) 03/16/17 04:45 RDW 14.5 % (11.6-16.5) 03/16/17 04:45 Plt Count 161 X10^3/uL (150.0-450.0) 03/16/17 04:45 Plt Count Comment Adequate (ADEQUATE) 03/16/17 04:45 MPV 7.4 fL (7.4-11.0) 03/16/17 04:45 Neut % 61.9 % (42.0-75.0) 03/16/17 04:45 Lymph % 22.5 % (21.0-51.0) 03/16/17 04:45 [place] % 11.6 % (0.0-13.0) 03/16/17 04:45 Eos % 3.4 % (0.9-2.9) H 03/16/17 04:45 Baso % 0.6 % (0.2-1.0) 03/16/17 04:45 Neut # 5.4 x10^3/uL (2.2-4.8) H 03/16/17 04:45 Lymph # 2.0 X10^3/uL (1.3-2.9) 03/16/17 04:45 [place] # 1.0 x10^3/uL (0.3-0.8) H 03/16/17 04:45 Eos # 0.3 x10^3/uL (0.0-0.2) H 03/16/17 04:45 Baso # 0.1 X10^3/uL (0.0-0.1) 03/16/17 04:45 Absolute Nucleated RBC 0.1 /100WBC 03/16/17 04:45 Total Counted 100 03/16/17 04:45 Neutrophils % (Manual) 57 % (39-76) 03/16/17 04:45 Band Neutrophils % 6 % (0-10) 03/16/17 04:45 Lymphocytes % (Manual) 26 % (13-43) 03/16/17 04:45 Monocytes % (Manual) 9 % (4-9) 03/16/17 04:45 Eosinophils % (Manual) 2 % (0-6) 03/16/17 04:45 Plt Morphology Comment Normal (NORMAL) 03/16/17 04:45 RBC Morphology Normal (NORMAL) 03/16/17 04:45 Sodium 143 mmol/L (136-145) 03/16/17 04:45 Corrected Sodium 144 mmol/L (136-145) 03/16/17 04:45 Potassium 4.5 mmol/L (3.5-5.1) 03/16/17 08:03 Chloride 105 mmol/L (98-107) 03/16/17 04:45 Carbon Dioxide 27.1 mmol/L (21-32) 03/16/17 04:45 BUN 18 mg/dL (7-18) 03/16/17 04:45 Creatinine 1.43 mg/dL (0.55-1.02) H 03/16/17 04:45 Est GFR (MDRD) Af Amer 46 (>60) L 03/16/17 04:45 Est GFR (MDRD) Non-Af 38 (>60) L 03/16/17 04:45 Glucose 133 mg/dL (65-99) H 03/16/17 04:45 Calcium 9.2 mg/dL (8.5-10.1) 03/16/17 04:45 Corrected Calcium 9.8 mg/dL (8.5-10.1) 03/16/17 04:45 Magnesium 1.8 mg/dL (1.7-2.9) 03/16/17 04:45 Total Bilirubin 0.80 mg/dL (0.2-1.0) 03/16/17 04:45 AST 36 Units/L (15-37) 03/16/17 04:45 ALT 26 Units/L (12-78) 03/16/17 04:45 Alkaline Phosphatase 142 Units/L (46-116) H 03/16/17 04:45 C-Reactive Protein 140.10 mg/L (0-3.0) H 03/13/17 21:30 Total Protein 7.1 g/dL (6.4-8.2) 03/16/17 04:45 Albumin 3.2 g/dL (3.4-5.0) L 03/16/17 04:45 Globulin 3.9 g/dL (2.5-4.5) 03/16/17 04:45 Albumin/Globulin Ratio 0.8 Ratio (1.1-2.1) L 03/16/17 04:45 Specimen Type Clean catch urine 03/13/17 21:17 Urine Color Yellow (YELLOW) 03/13/17 21:17 Urine Appearance Hazy (CLEAR) 03/13/17 21:17 Urine pH 6.0 (5.0 - 8.0) 03/13/17 21:17 Ur Specific [place] 1.005 (1.000-1.030) 03/13/17 21:17 Urine Protein 1+ (NEGATIVE) 03/13/17 21:17 Urine Glucose (UA) Negative (NEGATIVE) 03/13/17 21:17 Urine Ketones Negative (NEGATIVE) 03/13/17 21:17 Urine Occult Blood 2+ (NEGATIVE) 03/13/17 21: Urine Nitrite Negative (NEGATIVE) 03/13/17 21:17 Urine Bilirubin Negative (NEGATIVE) 03/13/17 21:17 Urine Urobilinogen 1+ (NORMAL) 03/13/17 21:17 Ur Leukocyte Esterase 1+ (NEGATIVE) 03/13/17 21: Urine RBC 3-5 /HPF (NEGATIVE) 03/13/17 21:17 Urine WBC 5-10 /HPF (NEGATIVE) 03/13/17 21:17 Ur Squamous Epith Cells Rare /HPF (NEGATIVE) 03/13/17 21:17 Urine Bacteria Trace /HPF (NEGATIVE) 03/13/17 21:17 Ur Culture Indicated? No/not indicated 03/13/17 21:17 - Plan (1) Bronchopneumonia Status: Acute Plan: CONTINUE LEVAQUIN, DUONEBS, ROBITUSSIN, IV FLUIDS, MONITOR LABS AND CHEST XRAY. (2) Hypokalemia Status: Acute Plan: CONTINUE POTASSIUM PROTOCOL, MONITOR LABS. (3) Acute gastroenteritis Status: Acute Plan: CONTINUE IV FLUIDS, ANTI-EMETICS, MONITOR. (4) Fever Status: Acute Qualifiers: Fever type: unspecified Encounter type: E Qualified Code(s): R50.9 - Fever, unspecified Plan: ABOVE. (5) UTI (urinary tract infection) Status: Acute Qualifiers: Urinary tract infection type: acute cystitis Hematuria presence: with hematuria Indwelling urinary catheter type: I Encounter type: E Qualified Code(s): N30.01 - Acute cystitis with hematuria Plan: CONTINUE IV ANTIBIOTICS, MONITOR. (6) Renal insufficiency Status: Acute Plan: ABOVE. (7) Hypoalbuminemia Status: Acute Plan: CONTINUE ALBUMIN IV, MONITOR LABS. (8) Weakness Status: Acute Plan: CONTINUE IV FLUIDS, MONITOR. (9) COPD (chronic obstructive pulmonary disease) Status: Chronic Qualifiers: COPD type: COPD with acute lower respiratory infection Chronic bronchitis type: C Emphysema type: E Qualified Code(s): J44.0 - Chronic obstructive pulmonary disease with acute lower respiratory infection (10) GERD (gastroesophageal reflux disease) Status: Chronic Qualifiers: Esophagitis presence: esophagitis presence not specified Qualified Code(s) : K21.9 - Gastro-esophageal reflux disease without esophagitis (11) Hyperlipidemia Status: Chronic Qualifiers: Hyperlipidemia type: mixed hyperlipidemia Qualified Code(s): E78.2 - Mixed hyperlipidemia (12) Hypertension Status: Chronic Qualifiers: Hypertension type: essential hypertension Qualified Code(s): I10 - Essential (primary) hypertension (13) Anxiety Status: Chronic
[2017-03-16] MEDS: ZOCOR TAB 20 MG PO SCH (21:01)
[2017-03-16] MEDS: ANTIVERT TAB 25 MG PO SCH (21:01)
[2017-03-16] MEDS: RESTORIL CAP 15 MG PO PRN (21:01)
[2017-03-17 05:36] LABS: ALBUMIN 3.2 g/dL (3.4-5.0); CALCIUM 9.1 mg/dL (8.5-10.1); CARBON DIOXIDE 25.7 mmol/L (21-32); COR CA(FOR HYPOALB) 9.7 mg/dL (8.5-10.1); CREATININE 1.63 mg/dL (0.55-1.02); TOTAL PROTEIN 7.2 g/dL (6.4-8.2)
[2017-03-17 05:50] LABS: BASOPHILS # (AUTO) 0.1 X10^3/uL (0.0-0.1); BASOPHILS % (AUTO) 0.8 % (0.2-1.0); EOSINOPHILS # (AUTO) 0.5 x10^3/uL (0.0-0.2); EOSINOPHILS % (AUTO) 5.8 % (0.9-2.9); HEMATOCRIT 38.4 % (36.0-47.0); HEMOGLOBIN 12.6 g/dL (12.0-16.0); LYMPHOCYTES # (AUTO) 2.1 X10^3/uL (1.3-2.9); LYMPHOCYTES % (AUTO) 24.6 % (21.0-51.0); MEAN CORPUSCULAR HEMOGLOBIN 27.8 pg (27.0-34.0); MEAN CORPUSCULAR HGB CONC 32.9 g/dL (33.0-35.0); MEAN CORPUSCULAR VOLUME 84.4 fL (80.0-100.0); MEAN PLATELET VOLUME 7.3 fL (7.4-11.0); MONOCYTES # (AUTO) 0.6 x10^3/uL (0.3-0.8); MONOCYTES % (AUTO) 6.6 % (0.0-13.0); NEUTROPHILS # (AUTO) 5.4 x10^3/uL (2.2-4.8); NEUTROPHILS % (AUTO) 62.2 % (42.0-75.0); PLATELET COUNT 199 X10^3/uL (150.0-450.0); RED BLOOD COUNT 4.55 X10^6/uL (3.5-5.4); RED CELL DISTRIBUTION WIDTH 14.6 % (11.6-16.5); WHITE BLOOD COUNT 8.7 X10^3/uL (3.6-10.0)
[2017-03-17] MEDS: NS 1/2 + KCL 20 MEQ/L 1,000 ML IV SCH (05:51)
--- NOTE | 2017-03-17 06:26 | RAD ---
HISTORY: Cough, congestion Study: Chest one view Comparison: March 16, 2017 Findings: The heart is now within normal limits in size. No congestive heart failure is noted. No acute alveol ar infiltrates or pleural effusions are identified. The bony thorax is unremarkable. IMPRESSION: Lungs clear Reported By:
[2017-03-17 06:27] LABS: BAND NEUTROPHILS % 2 % (0-10)
[2017-03-17 06:28] LABS: PLATELET MORPHOLOGY COMMENT NORMAL (NORMAL)
[2017-03-17] MEDS: DUONEB 0.5 MG/3 MG NEB SCH (08:54)
[2017-03-17] MEDS: HYZAAR 50/12.5 MG PO SCH (08:59)
[2017-03-17] MEDS: ALBUMIN HUMAN 25%- 100ML 100 ML IV SCH (09:00)
[2017-03-17] MEDS: ROBITUSSIN DM PO SCH (09:00)
[2017-03-17 10:33] VITALS: BP 163/80
== END 2017-03-17 11:10 | disposition home or self-care (01) | DRG 689 ==
LOC: ER 20:37 → MED/SURG 22:51
PROVIDERS: ADMIT Internal Medicine; ATTEND Internal Medicine
DX: N30.01 Acute cystitis with hematuria (principal); J18.0 Bronchopneumonia, unspecified organism; J44.0 Chronic obstructive pulmonary disease with (acute) lower respiratory infection; R50.9 Fever, unspecified; E87.6 Hypokalemia; I10 Essential (primary) hypertension; E78.2 Mixed hyperlipidemia; R11.2 Nausea with vomiting, unspecified; E86.0 Dehydration; R19.7 Diarrhea, unspecified; K21.9 Gastro-esophageal reflux disease without esophagitis; F41.8 Other specified anxiety disorders; R53.1 Weakness; N28.89 Other specified disorders of kidney and ureter; K52.89 Other specified noninfective gastroenteritis and colitis; I51.7 Cardiomegaly
CPT/HCPCS: 36415; 71010; 71020; 80053; 81001; 83735; 84132; 85025; 86140; 87086; 94640; 96365; 96374; 99283; A4216; A4222; J7030; P9047; J0290; J1580; J1885; J1956; J2405; J3480; J7620